=== PATIENT | female | born 1995 | race Caucasian/White ===

== ENCOUNTER 2019-06-01 15:42 | Emergency (ER) | payer OTHER, SELFPAY ==
[2019-06-01 16:05] VITALS: BP 126/78; PULSE 83; RESP 16; TEMP 36.9; O2SAT 98
[2019-06-01 16:20] VITALS: BP 132/64; PULSE 93; RESP 20; TEMP 37.5; O2SAT 95
--- NOTE | 2019-06-01 16:36 | ED.URI ---
HPI - URI/Sore Throat General Chief Complaint: Upper Respiratory Infection Stated Complaint: Poss Sinus infection Time Seen by Provider: 06/01/19 16:36 Source: patient Mode of arrival: ambulatory Limitations: no limitations History of Present Illness HPI Narrative: Patient presents with a two-week history of sinus pressure and congestion. Patient states she is taken multiple [id number] remedies with no relief. Patient denies any fever no shortness of breath no chest pain. Related Data Home Medications Medication Instructions Recorded Confirmed Trileptal 300 mg PO DAILY 04/09/19 06/01/19 clonazepam 0.5 mg PO HS 04/09/19 06/01/19 levothyroxine 88 mcg PO DAILY 04/09/19 06/01/19 risperidone 0.5 mg PO BID 04/09/19 06/01/19 vilazodone [Viibryd] 40 mg PO DAILY 04/09/19 06/01/19 Allergies Allergy/AdvReac Type Severity Reaction Status Date / Time buspirone Allergy Unknown too Verified 06/01/19 16:30 sedating cefixime Allergy Unknown Unknown Verified 06/01/19 16:30 Review of Systems Review of Systems: Narrative: CONSTITUTIONAL: Denies fever, chills, or sweats. EYES: Denies visual changes, redness, or discharge. ENT: Denies rhinorrhea, congestion, sore throat, or otalgia. CARDIOVASCULAR: Denies chest pain, palpitations, or edema. RESPIRATORY: Denies cough or dyspnea. GASTROINTESTINAL: Denies abdominal pain, nausea, vomiting, or diarrhea. GENITOURINARY: Denies dysuria or hematuria. SKIN: Denies rash or itching. MUSCULOSKELETAL: Denies back pain, joint pain, or myalgia. NEUROLOGIC: Denies headache, numbness, or weakness. PSYCHIATRIC: Denies anxiety or depression. [facility] Past Medical History Medical History Anxiety Depression Hypothyroidism Family History Family History Other Cerebrovascular accident Depression Diabetes mellitus Hypertension Social History Social History Smoking status: Never smoker Alcohol intake: current Comments At time of signature, agree with nursing past medical, surgical, social and family history. There is no relevant family history pertinent to the presenting complaint Exam Narrative: Exam Narrative: GENERAL: Well-appearing, well-nourished, and in no acute distress. HEAD: Normocephalic, atraumatic. EYES: PERRLA and EOMI. ENT: Nares clear, no rhinorrhea or epistaxis. Mucous membranes moist. Mild frontal sinus tenderness mild postnasal drainage bilateral TM dullness NECK: Supple. CHEST: Clear to auscultation. No respiratory distress. HEART: Regular rate and rhythm. No murmur heard. Normal peripheral pulses. ABDOMEN: Soft, nontender, nondistended, normal active bowel sounds. EXTREMITIES: Normal range of motion. No edema. SKIN: Warm, dry, no rash. NEURO: No focal deficits. Alert and oriented x3. [place] Coma Scale Eye Opening: Spontaneous 4 [place] Coma Scale Motor: Obeys Commands 6 Dominique Coma Scale Verbal: Oriented 5 [place] Coma Scale Total 15 Course Vital Signs Vital signs: Vital Signs Temperature 36.9 C 06/01/19 16:05 Pulse Rate 83 06/01/19 16:05 Respiratory Rate 16 06/01/19 16:05 Blood Pressure 126/78 06/01/19 16:05 Pulse Oximetry 98 06/01/19 16:05 Temperature 37.5 C 06/01/19 16:20 Pulse Rate 93 06/01/19 16:20 Respiratory Rate 20 06/01/19 16:20 Blood Pressure 132/64 06/01/19 16:20 Pulse Oximetry 95 06/01/19 16:20 Please MICHELLE schedule a followup visit with your personal physician for further evaluation and treatment. Including recheck and discussion of your blood pressure. If your symptoms persist, change or worsen significantly before you can contact your personal physician then please, without delay, go to the emergency department for further evaluation MDM - URI/Sore Throat Differential Diagnosis Differential diagnosis: Likely upper respiratory infection,
== END 2019-06-01 16:56 | disposition home or self-care (01) ==
PROVIDERS: Emergency Provider Nurse Practitioner Family; PCP Family Medicine
DX: J01.00 Acute maxillary sinusitis, unspecified (principal); J06.9 Acute upper respiratory infection, unspecified
CPT/HCPCS: 99213; G0463

== ENCOUNTER 2020-04-08 23:48 | Emergency (ER) | payer OTHER, SELFPAY ==
[2020-04-08 23:54] VITALS: BP 114/73; PULSE 85; RESP 18; TEMP 36.6; O2SAT 100
--- NOTE | 2020-04-08 23:55 | ED.NAVMDI ---
HPI - Nausea/Vomiting/Diarrhea General Chief complaint: Nausea/Vomiting/Diarrhea Stated complaint: vomiting, withdrawals Time Seen by Provider: 04/08/20 23:50 History of Present Illness HPI Narrative: [place] and vomiting since this morning. Associated with mild epigastric pain. She is not able to tolerate anything by mouth. She recently had her antidepressant dose changed and believes that she is in withdrawal. No fever, chills, diarrhea, constipation. Related Data Home Medications Medication Instructions Recorded Confirmed clonazepam 0.5 mg PO HS 04/09/19 03/16/20 risperidone 0.5 mg PO BID 04/09/19 03/16/20 vilazodone [Viibryd] 20 mg PO DAILY 04/09/19 03/16/20 norethindrone acetate 1 mg-ethinyl 1 tablet PO DAILY 01/06/20 03/16/20 estradiol 20 mcg tablet Allergies Allergy/AdvReac Type Severity Reaction Status Date / Time buspirone Allergy Unknown too Verified 04/08/20 23:58 sedating cefixime Allergy Unknown Unknown Verified 04/08/20 23:58 Review of Systems Review of Systems: All systems reviewed & are unremarkable except as noted in HPI and below Constitutional: Constitutional: Denies chills and Denies fever(s) Cardiovascular: Cardiovascular: Denies chest pain Respiratory: Respiratory: Denies dyspnea Gastrointestinal: Gastrointestinal: Reports abdominal pain, Denies constipation, Reports heartburn, Denies diarrhea, Reports nausea and Reports vomiting Genitourinary: Genitourinary: Denies hematuria and Denies dysuria Musculoskeletal: Musculoskeletal: Denies back pain Neurologic: Reports dizziness, Denies syncope and Reports weakness Psychiatric: Psychiatric: Reports anxiety and Reports depression Endocrine: Endocrine: Denies polydipsia [facility] Past Medical History Medical History Anxiety Depression Dysuria Hypothyroidism Viral syndrome Family History Family History Other Cerebrovascular accident Depression Diabetes mellitus Hypertension Social History Social History Smoking status: Current some day smoker (marijuana) Alcohol intake: current Exam Const: General: healthy appearing, no acute distress, alert and ill appearing Orientation/consciousness: patient oriented x3 HENMT: Head: normal to inspection Chest: Chest palpation & inspection: no tenderness Resp: Effort & Inspection: normal respiratory effort Auscultation: clear to auscultation bilaterally, no rales, no rhonchi and no wheezes Cardio: Jugular venous distension: no JVD Rate: regular rate Rhythm: regular rhythm Heart sounds: no murmurs GI: Inspection: non-distended GI Palp: Yes Soft to palpation, Yes Tenderness to palpation present (GI) (epigastric, mild), No Guarding due to palpation present (GI) and No Rebound tenderness present Skin: General skin exam: normal color Neuro: General: patient oriented x3, moves all extremities, no focal motor deficits and CN's II-XI intact bilaterally Speech: normal speech Extrem: General: no edema Psych: Appearance: well kempt Affect: normal affect Course Vital Signs Vital signs: Vital Signs Temperature 36.6 C 04/08/20 23:54 Pulse Rate 85 04/08/20 23:54 Respiratory Rate 18 04/08/20 23:54 Blood Pressure 114/73 04/08/20 23:54 Pulse Oximetry 100 04/08/20 23:54 Temperature 36.6 C 04/08/20 23:54 Pulse Rate 62 04/09/20 03:30 Respiratory Rate 16 04/09/20 03:30 Blood Pressure 123/80 04/09/20 03:20 Pulse Oximetry 100 04/09/20 03:15 MDM - Nausea/Vomiting/Diarrhea MDM Narrative Medical decision making narrative: Doing better after treatment. Now complaining of heart burn. I ordered medications. She asked to be discharged before I had the opportunity to reassess her Differential Diagnosis Differential diagnosis: Likely food poisoning, gastroenteritis, drug-induced
[2020-04-09] VITALS (12 sets, daily range): BP systolic 121–123; BP diastolic 79–80; PULSE 57–96; RESP 8–20; O2SAT 100
[2020-04-09] MEDS: SODIUM CHLORIDE 0.9% IV 1,000 ML 999 ML IV CONT ×2 (00:11→01:15)
[2020-04-09] MEDS: ONDANSETRON INJ 4 MG/2 ML VIAL IV PUSH (00:11)
[2020-04-09 00:35] LABS: Alanine Aminotransferase 12 U/L (4-35); Albumin Level 4.7 g/dL (3.5-5.1); Alkaline Phosphatase 114 U/L (38-126); Anion Gap 12 mmol/L (8-16); Aspartate Amino Transferase 23 U/L (14-36); Blood Urea Nitrogen 13 mg/dL (7-17); Carbon Dioxide 24 mmol/L (22-30); Chloride 103 mmol/L (98-107); Estimated CRCL calculation 66 ml/min; Estimated Glomerular Filt Rate > 60; Glucose 187 mg/dL (65-105); Lipase 44 U/L (23-300); Potassium 4.1 mmol/L (3.4-5.0); Sodium 139 mmol/L (137-145)
[2020-04-09 00:38] LABS: Basophils Absolute Auto 0.1 K/mm3 (0.0-0.1); Basophils Percent Auto 0.6 % (0.2-1.2); Eosinophils Absolute Auto 0.3 K/mm3 (0-0.3); Eosinophils Percent Auto 2.4 % (0-4.4); Hematocrit 45.3 % (37.0-47.0); Hemoglobin 15.8 g/dL (12.0-15.0); Immature Granulocyte Absolute 0.07 K/mm3 (0.00-0.031); Immature Granulocyte Percent A 0.5 % (0-0.5); Lymphocytes Absolute Auto 1.81 K/mm3 (0.9-3.2); Lymphocytes Percent Auto 12.9 % (18.3-44.2); Mean Corpuscular HGB Conc 34.9 g/dl (32-36); Mean Corpuscular Hemoglobin 32.3 pg (26-34); Mean Corpuscular Volume 92.6 fl (80-100); Mean Platelet Volume 9.2 fl (7.4-10.4); Monocytes Absolute Auto 0.6 K/mm3 (0.1-0.6); Monocytes Percent Auto 4.2 % (2.6-8.5); Neutrophils Absolute Auto 11.1 K/mm3 (1.3-6.7); Neutrophils Percent Auto 79.4 % (45.5-73.1); Platelet Count Result 402 k/mm3 (150-375); Red Blood Count 4.89 M/mm3 (4.2-5.4); Red Cell Distribution Width 12.7 % (11.5-14.5)
[2020-04-09] MEDS: HALOPERIDOL LACTATE 5 MG/ML VIAL IV PUSH (01:15)
[2020-04-09 01:31] LABS: Add Urine Microscopic? YES; Appearance Urine Cloudy (Clear); Bilirubin Urine Negative (Negative); Blood Urine 2+ (Negative); Color Urine Yellow (Yellow); Glucose Urine UA Negative (Negative); Ketones Urine 2+ mg/dL (Negative); Leukocyte Esterase Ur Trace LEU/UL (Negative); Mucus Urine Heavy /lpf; Nitrate Urine Negative (Negative); Protein Urine 2+ mg/dL (Negative); Specific Grav Ur 1.029 (1.001-1.035); Squamous Epithelial Cell Urine Many /hpf (Few); Urobilinogen Urine Negative mg/dL (<2.0)
[2020-04-09] MEDS: PANTOPRAZOLE SODIUM IV 40 MG VIAL IV PUSH (02:35)
== END 2020-04-09 03:47 | disposition home or self-care (01) ==
PROVIDERS: Emergency Provider Emergency Medicine; PCP Family Medicine
DX: R11.2 Nausea with vomiting, unspecified (principal); F41.9 Anxiety disorder, unspecified; F32.9 Major depressive disorder, single episode, unspecified; E03.9 Hypothyroidism, unspecified
CPT/HCPCS: 36415; 80053; 81001; 81025; 83690; 85025; 87086; 87088; 96361; 96374; 96375; 99284; A9270; C9113; J1630; J2405; J7030

== ENCOUNTER 2020-10-16 14:50 | Emergency (ER) | payer OTHER, SELFPAY ==
[2020-10-16 14:56] VITALS: BP 111/71; PULSE 89; RESP 14; TEMP 37.4; O2SAT 99
[2020-10-16 15:06] VITALS: BP 111/71; PULSE 89; RESP 14; TEMP 37.4; O2SAT 99
--- NOTE | 2020-10-16 15:37 | ED.GENADULT ---
HPI - General Adult General Chief complaint: Skin/Abscess/Foreign Body Stated complaint: Bump under Chin Time Seen by Provider: 10/16/20 15:37 Source: patient and RN notes reviewed Mode of arrival: ambulatory Limitations: no limitations History of Present Illness HPI narrative: 24-year-old female presents with complaints of lesion to chin with firmness, redness, tenderness, and swelling for the past 7 days. ?Alice reports increasing symptoms after picking at the area on . ?Neosporin without relief. ?Tender to touch. Drainage. ?History of skin problems. ?No fever. ?No abdominal pain, nausea, and vomiting. Tolerating po intake well. ?LMP 10/16/20. ?Remains active. ?The patient reports she has not been diagnosed with COVID-19. The patient reports she is not waiting for the results of a COVID-19 lab test. ?The patient reports she does not have chills, weakness, or fatigue. ?The patient reports she does not have a new or worsening cough or shortness of breath. ?Denies chest pain. The patient reports she does not have any rhinorrhea, congestion, loss of taste or smell, sore throat, and diarrhea. ?Denies recent traveling. ?Denies concerns for COVID-19 or exposures. At this time, the patient is not suspected of having COVID-19. Some parts of this dictation were generated by voice recognition software and may contain typographical and/or grammatical inaccuracies. Related Data Home Medications Medication Instructions Recorded Confirmed oxcarbazepine 150 mg tablet 300 mg PO DAILY 08/17/20 08/17/20 norethindrone-e.estradiol-iron 1 tablet PO DAILY 10/16/20 10/16/20 [Aurovela Fe 1.5/30 (28)] Allergies Allergy/AdvReac Type Severity Reaction Status Date / Time buspirone Allergy Unknown too Verified 09/27/20 11:15 sedating cefixime Allergy Unknown Hives Verified 10/16/20 15:04 Review of Systems Review of Systems: Narrative: CONSTITUTIONAL: Denies fever, chills, sweats. EYES: Denies visual changes, redness, discharge. ENT: Denies rhinorrhea, congestion, sore throat, otalgia. CARDIOVASCULAR: Denies chest pain, palpitations, edema. RESPIRATORY: Denies dyspnea, wheezing, cough. GASTROINTESTINAL: Denies abdominal pain, nausea, vomiting, diarrhea. SKIN: Denies rash or itching. Complaints of lesion to chin with firmness, redness, tenderness, swelling, and drainage. MUSCULOSKELETAL: Denies acute back pain, joint pain, or myalgia. NEUROLOGIC: Denies numbness or focal weakness. PSYCHIATRIC: Denies anxiety or depression. All systems reviewed & are unremarkable except as noted in HPI and below. [facility] Past Medical History Medical History (Updated 10/17/20 @ 00:00 by Noemi Palma) Anxiety Closed left forearm fracture Depression Dysuria Hypothyroidism Marijuana smoker Moderate persistent asthma Viral syndrome Surgical History Surgical History (Updated 10/16/20 @ 15:57 by ELVIA Simeon) History of dental surgery History of tonsillectomy Family History Family History Other Cerebrovascular accident Depression Diabetes mellitus Hypertension Social History Social History (Updated 10/16/20 @ 15:58 by ELVIA Simeon) Smoking status: Never smoker Tobacco type: cigarettes Second hand tobacco smoke exposure: No Alcohol intake: current Substance use: current Substance use type: marijuana Gender identity (if verbalized by the patient): Female Comments At time of signature, I have reviewed and agree with the nursing past medical, surgical, social, and family history. Please see nursing chart for further information. There is no relevant family history pertinent to the presenting complaint. Exam Narrative: Exam Narrative: GENERAL: This is a well-nourished, well-developed patient, in no apparent distress. Talking in full sentences without deficit and ambulate with steady gait without dyspnea. HEAD: Normocephalic, atrauma
== END 2020-10-16 16:08 | disposition home or self-care (01) ==
PROVIDERS: Emergency Provider Nurse Practitioner Family; PCP Family Medicine
DX: L70.0 Acne vulgaris (principal); E03.9 Hypothyroidism, unspecified; J45.909 Unspecified asthma, uncomplicated
CPT/HCPCS: 99213; G0463

== ENCOUNTER → 2020-11-08 12:01 | Outpatient (CLI) | payer OTHER, SELFPAY ==
--- NOTE | ~2020-11-08 | US_ITS ---
EXAMINATION: US abdomen limited EXAM DATE: 11/08/2020 12:19 INDICATION: Nausea, and vomiting every morning. Right-sided back pain, right shoulder pain. TECHNIQUE: Multiple grayscale and Doppler images of the abdomen right upper quadrant were obtained (b y a technologist who performed the scan) and subsequently reviewed. Comparison is made to prior exami nation from 05/26/2012. FINDINGS: The pancreatic head and body are normal in appearance. The pancreatic tail is not visualized. The l iver has normal echogenicity and contour. There are no focal liver lesions identified. There is no evidence of intrahepatic biliary duct dilation. Portal venous flow was seen in the hepatopedal, nor mal direction and has normal Doppler waveform. No right-sided hydronephrosis. Common bile duct measures 3 mm, which is normal. The gallbladder wall is normal in thickness, with ex pected amount of distention. No sonographic evidence of pericholecystic fluid. There is no cholelit hiases. Technologist performing exam reports patient did not demonstrate sonographic Purdy's sign. Please note that this sign is less reliable in patients who have received pain medication. IMPRESSION: 1. Unremarkable abdominal ultrasound exam. Reviewed, dictated and finalized at location B.
== END ==
PROVIDERS: PCP Family Medicine; Visit Provider Family Medicine
DX: R11.0 Nausea (principal)
CPT/HCPCS: 76705

== ENCOUNTER 2020-11-27 14:28 | Emergency (ER) | payer OTHER, SELFPAY ==
[2020-11-27 14:35] VITALS: BP 106/73; PULSE 84; RESP 16; TEMP 37.3; O2SAT 99
--- NOTE | 2020-11-27 14:57 | ED.EAR ---
HPI - Ear Problem General Chief complaint: Ear Stated complaint: Possible Ear infection Time Seen by Provider: 11/27/20 14:50 Source: patient, RN notes reviewed and old records reviewed Mode of arrival: ambulatory Limitations: no limitations History of Present Illness HPI Narrative: 24 year old female who presents to [facility] care with complaints of drainage from her right ear for the past week duration with her ear being itchy.Patient denies any acute pain to her right ear, states that drainage is clear and just irritated feeling and itchy. Patient denies any cough, nasal drainage, sore throat, fevers or any feelings of congestion. Patient has not taken any OTC medication or used any ear drops to he right ear.Patient does have past history of ear infections and tympanoplasty to her right ear. Patient denies any recent swimming. MD Complaint: ear pain (feels irritated and itchy) and ear discharge Location: right ear Duration: other (one week) Severity: mild Relieving factors: nothing Exacerbating factors: nothing Discharge from ear: Reports yes - clear Treatment prior to arrival: none Related Data Home Medications Medication Instructions Recorded Confirmed oxcarbazepine 150 mg tablet 300 mg PO DAILY 08/17/20 11/27/20 Allergies Allergy/AdvReac Type Severity Reaction Status Date / Time buspirone Allergy Unknown too Verified 11/24/20 10:39 sedating cefixime Allergy Unknown Hives Verified 11/24/20 10:39 Review of Systems Review of Systems: Narrative: CONSTITUTIONAL: Denies fever, chills, or sweats. EYES: Denies visual changes, redness, or discharge. ENT: Denies rhinorrhea, congestion, sore throat,drainage of eight ear. CARDIOVASCULAR: Denies chest pain, palpitations, or edema. RESPIRATORY: Denies cough or dyspnea. GASTROINTESTINAL: Denies abdominal pain, nausea, vomiting, or diarrhea. GENITOURINARY: Denies dysuria or hematuria. SKIN: Denies rash or itching. MUSCULOSKELETAL: Denies back pain, joint pain, or myalgia. NEUROLOGIC: Denies headache, numbness, or weakness. PSYCHIATRIC: Denies anxiety or depression. All systems reviewed & are unremarkable except as noted in HPI and below PMFSH Past Medical History Medical History (Updated 11/30/20 @ 17:09 by Stephanie Vega NP) Anxiety Closed left forearm fracture Depression Dysuria Hypothyroidism Marijuana smoker Moderate persistent asthma Nausea and vomiting Viral syndrome Surgical History Surgical History (Updated 11/30/20 @ 17:06 by Stephanie Vega NP) History of dental surgery History of tonsillectomy History of tympanoplasty of right ear Family History Family History (Updated 11/30/20 @ 17:07 by Stephanie Vega NP) Other Cerebrovascular accident Depression Diabetes mellitus Hypertension Kidney stones Social History Social History (Updated 11/30/20 @ 17:07 by Stephanie Vega NP) Smoking status: Former smoker Tobacco type: cigarettes Second hand tobacco smoke exposure: No Alcohol intake: current Substance use: current Substance use type: marijuana Gender identity (if verbalized by the patient): Female Comments At time of signature, agree with nursing past medical, surgical, social and family history. There is no relevant family history pertinent to the presenting complaint Exam Narrative: Exam Narrative: GENERAL: Well-appearing, well-nourished, and in no acute distress. HEAD: Normocephalic, atraumatic. EYES: PERRLA and EOMI. ENT: Nares clear, no rhinorrhea or epistaxis. Mucous membranes moist.Right TM normal with dull TM with canal red and irritated with some clear drainage no acute swelling of canal, Left TM normal with good light reflex, throat pink with no exudates or lesions NECK: Supple.no lymphadenopathy CHEST: Clear to auscultation. No respiratory distress.SAO2 99% on room air HEART: Regular rate and rhythm. No murmur heard. Normal peripheral pulses. ABDOMEN: Soft, nontender, nondistended, normal active
== END 2020-11-27 15:17 | disposition home or self-care (01) ==
PROVIDERS: Emergency Provider Registered Nurse; PCP Family Medicine
DX: H60.501 Unspecified acute noninfective otitis externa, right ear (principal); Z87.891 Personal history of nicotine dependence; F41.9 Anxiety disorder, unspecified; F32.9 Major depressive disorder, single episode, unspecified; E03.9 Hypothyroidism, unspecified; J45.909 Unspecified asthma, uncomplicated
CPT/HCPCS: 99213; G0463

== ENCOUNTER 2021-04-25 12:24 | Emergency (ER) | payer OTHER, SELFPAY ==
[2021-04-25 12:29] VITALS: BP 107/72; PULSE 77; RESP 16; TEMP 36.7; O2SAT 100
--- NOTE | 2021-04-25 12:51 | ED.URI ---
HPI - URI/Sore Throat General Chief Complaint: Upper Respiratory Infection Stated Complaint: sinus infection History of Present Illness HPI Narrative: This is a 27-year-old female comes in complaining that her asthma has been acting. Patient states that she has a inhaler at home as well as a nebulizer although she does not have any medication for her nebulizer. Patient states over the past few days it hurts her to cough she seems somewhat congested and she is not getting better. Patient called her primary care provider was unable to get in. Related Data Home Medications Medication Instructions Recorded Confirmed oxcarbazepine 150 mg tablet 300 mg PO DAILY 08/17/20 04/25/21 Allergies Allergy/AdvReac Type Severity Reaction Status Date / Time buspirone Allergy Unknown too Verified 04/25/21 12:41 sedating cefixime Allergy Unknown Hives Verified 04/25/21 12:41 amoxicillin [From Augmentin] AdvReac Other Verified 04/25/21 12:46 clavulanic acid AdvReac Other Verified 04/25/21 12:46 [From Augmentin] Review of Systems Review of Systems: Shortness of breath, wheezing, coughing All systems reviewed & are unremarkable except as noted in HPI and below PMFSH Past Medical History Medical History Anxiety Closed left forearm fracture Depression Dysuria Hypothyroidism Marijuana smoker Moderate persistent asthma Nausea and vomiting Viral syndrome Surgical History Surgical History History of dental surgery History of tonsillectomy History of tympanoplasty of right ear Family History Family History Other Cerebrovascular accident Depression Diabetes mellitus Hypertension Kidney stones Social History Social History Tobacco type: cigarettes Second hand tobacco smoke exposure: No Alcohol intake: current Substance use: current Substance use type: marijuana Gender identity (if verbalized by the patient): Female Sexual Orientation (if Verbalized by the Patient): Straight or Heterosexual Comments At time as signature, I have reviewed and agree with nursing past medical, social, surgical and family history. Please see nursing chart for further information. There is no relevant family history pertinent to the presenting complaint. Exam Narrative: GENERAL:Well-appearing, and in no acute distress. HEAD:Normocephalic, atraumatic. EYES: PERRLA ENT: Nares clear Mucous membranes moist. CHEST: Clear to auscultation diminished in lower lobes. No respiratory distress. HEART: Regular rate and rhythm. Normal peripheral pulses. EXTREMITIES: Normal range of motion. No edema. SKIN: Warm, dry, no rash. NEURO: No focal deficits. Alert and oriented x3. Course Course Emergency Course: Influenza negative Vital Signs Vital signs: Vital Signs Temperature 98.0 F 04/25/21 12:29 Pulse Rate 77 04/25/21 12:29 Respiratory Rate 16 04/25/21 12:29 Blood Pressure 107/72 04/25/21 12:29 Pulse Oximetry 100 04/25/21 12:29 Temperature 98.0 F 04/25/21 12:29 Pulse Rate 77 04/25/21 12:29 Respiratory Rate 16 04/25/21 12:29 Blood Pressure 107/72 04/25/21 12:29 Pulse Oximetry 100 04/25/21 12:29 MDM - URI/Sore Throat Differential Diagnosis Differential diagnosis: Likely upper respiratory infection, otitis media, sinusitis, viral infection, bronchitis, influenza, pharyngitis and other Lab Data Labs: Influenza A Screen Negative Reference Range: Negative Influenza B Screen Negative Reference Range: Negative Discharge Plan Discharge Clinical Impression: Asthma Qualifiers: Asthma severity: mild Asthma persistence: intermittent A
== END 2021-04-25 13:20 | disposition home or self-care (01) ==
PROVIDERS: Emergency Provider Nurse Practitioner Family; PCP Family Medicine
DX: J45.20 Mild intermittent asthma, uncomplicated (principal); E03.9 Hypothyroidism, unspecified
CPT/HCPCS: 87804; 99213; G0463

== ENCOUNTER 2021-08-10 16:27 | Emergency (ER) | payer OTHER, SELFPAY ==
[2021-08-10 16:37] VITALS: BP 124/76; PULSE 87; RESP 18; TEMP 37.4; O2SAT 100
--- NOTE | 2021-08-10 17:06 | ED.URI ---
HPI - URI/Sore Throat General Chief Complaint: Upper Respiratory Infection Stated Complaint: sinus infection Time Seen by Provider: 08/10/21 17:00 Source: patient Mode of arrival: ambulatory Limitations: no limitations History of Present Illness HPI Narrative: Ms. Bush is a 25-year-old female patient presenting to the clinic today with complaints of sinus congestion, sinus pain, runny nose x3 days. She denies any known exposure to influenza, strep, or Covid. She reports she would like to have flu testing completed because she is concerned about her boss who is at work. She denies any fever or chills. MD elicited complaint: rhinorrhea, nasal congestion and sinus pain Related Data Home Medications Medication Instructions Recorded Confirmed levothyroxine 88 mcg PO DAILY 08/10/21 08/10/21 Allergies Allergy/AdvReac Type Severity Reaction Status Date / Time buspirone Allergy Unknown too Verified 08/10/21 16:55 sedating cefixime Allergy Unknown Hives Verified 08/10/21 16:55 amoxicillin [From Augmentin] AdvReac Other Verified 08/10/21 16:55 clavulanic acid AdvReac Other Verified 08/10/21 16:55 [From Augmentin] Review of Systems Review of Systems: Pertinent positives per HPI. Patient denies any fever, chills, rash, headache, visual changes, dizziness, cough, shortness of breath, chest pain, palpitations, nausea, vomiting, diarrhea, constipation, abdominal pain, or any urinary issues. [facility] Past Medical History Medical History Anxiety Closed left forearm fracture Depression Dysuria Hypothyroidism Marijuana smoker Moderate persistent asthma Nausea and vomiting Viral syndrome Surgical History Surgical History History of dental surgery History of tonsillectomy History of tympanoplasty of right ear Family History Family History Other Cerebrovascular accident Depression Diabetes mellitus Hypertension Kidney stones Social History Social History Tobacco type: cigarettes Second hand tobacco smoke exposure: No Alcohol intake: current Substance use: current Substance use type: marijuana Gender identity (if verbalized by the patient): Female Sexual Orientation (if Verbalized by the Patient): Straight or Heterosexual Comments At the time of my signature, I reviewed and agree with the nursing past medical, surgical, social, and family history. There is no relevant family history pertinent to the patient complaint. Exam Narrative: General: Well-developed, well nourished, in no apparent distress Head: Normocephalic, atraumatic Eyes: Pupils equally round and reactive to light bilaterally, EOM intact, sclera and conjunctive clear, no discharge, lids normal Ears: TMs intact and clear, ear canals clear, no drainage, grossly hearing normal. Nose: Nares patent, clear discharge, mild inflammation, mild sinus tenderness to the frontal sinus. Mouth: Oral pharynx without lesions or masses, good dentition, MMM. Neck: Supple, trachea midline, no enlargement of anterior or posterior cervical nodes, no thyroid masses or goiter palpable. Cardio: Regular rate and rhythm, s1 and s2 normal, no murmur appreciated. Resp: Clear to auscultation bilaterally, no rhonchi, rales, wheezing or rubs Course Course Emergency Course: Portions of this record may have been created with voice recognition software. Level of Care: Express Care Visit Vital Signs Vital signs: Vital Signs Temperature 37.4 C 08/10/21 16:37 Pulse Rate 87 08/10/21 16:37 Respiratory Rate 18 08/10/21 16:37 Blood Pressure 124/76 08/10/21 16:37 Pulse Oximetry 100 08/10/21 16:37 Temperature 37.4 C 08/10/21 16:37 Pulse Rate 87 08/10/21 16:37 Respiratory Rate
== END 2021-08-10 17:15 | disposition home or self-care (01) ==
PROVIDERS: Emergency Provider Nurse Practitioner Family; PCP Family Medicine
DX: J06.9 Acute upper respiratory infection, unspecified (principal); E03.9 Hypothyroidism, unspecified; J45.909 Unspecified asthma, uncomplicated; Z72.0 Tobacco use; F12.90 Cannabis use, unspecified, uncomplicated
CPT/HCPCS: 87804; 99213; G0463

== ENCOUNTER 2021-10-31 12:12 | Outpatient (CLI) | payer OTHER, SELFPAY ==
[2021-11-06 20:04] LABS: Tissue Transglutaminase IgG Ab <1.0 U/mL (<15.0)
[2021-11-07 14:43] LABS: Tissue Transglutaminase IgA Ab <1.0 U/mL (<15.0)
== END 2021-10-31 12:13 | disposition home or self-care (01) ==
LOC: ANHLAB 12:13
PROVIDERS: PCP Family Medicine; Visit Provider Nurse Practitioner
DX: K21.9 Gastro-esophageal reflux disease without esophagitis (principal); K58.1 Irritable bowel syndrome with constipation; R11.0 Nausea; R14.0 Abdominal distension (gaseous)
CPT/HCPCS: 36415; 83516

== ENCOUNTER 2021-12-30 14:39 | Emergency (ER) | payer OTHER, SELFPAY ==
[2021-12-30 14:44] VITALS: BP 117/59; PULSE 91; RESP 16; TEMP 36.3; O2SAT 99
--- NOTE | 2021-12-30 14:56 | ED.GENADULT ---
HPI - General Adult General Chief complaint: Skin/Abscess/Foreign Body Stated complaint: Skin Sore/Foot Time Seen by Provider: 12/30/21 14:57 Source: patient Mode of arrival: ambulatory Limitations: no limitations History of Present Illness HPI narrative: 26-year-old female patient presents to the [facility] with complaints of a rash to the foot/between the toes for the last 4 days. Patient states that there was some blisters in between the toes that she recently popped due to it being itchy. Patient states she has been putting Neosporin between the toes. Denies any fevers, body aches or chills. Denies any discharge coming from the area. Related Data Home Medications Medication Instructions Recorded Confirmed L norgest/E estradiol-E estrad 1 tablet PO DAILY 12/30/21 12/30/21 0.15 mg-30 mcg (84)/10 mcg(7) tabs,3mos (Seasonique) clonazepam 0.5 mg tablet 0.5 mg PO HS 12/30/21 12/30/21 Allergies Allergy/AdvReac Type Severity Reaction Status Date / Time cefixime Allergy Unknown Hives Verified 12/30/21 14:54 amoxicillin [From Augmentin] AdvReac Other Verified 12/30/21 14:54 clavulanic acid AdvReac Dyspnea / Verified 12/30/21 14:54 [From Augmentin] SOB Review of Systems Review of Systems: CONSTITUTIONAL: Denies fever, chills, or sweats. EYES: Denies visual changes, redness, or discharge. ENT: Denies rhinorrhea, congestion, sore throat, or otalgia. CARDIOVASCULAR: Denies chest pain, palpitations, or edema. RESPIRATORY: Denies cough or dyspnea. GASTROINTESTINAL: Denies abdominal pain, nausea, vomiting, or diarrhea. GENITOURINARY: Denies dysuria or hematuria. SKIN: Positive itching and rash noted to left foot between the toes MUSCULOSKELETAL: Denies back pain, joint pain, or myalgia. NEUROLOGIC: Denies headache, numbness, or weakness. PSYCHIATRIC: Denies anxiety or depression. [facility] Past Medical History Medical History Anxiety Closed left forearm fracture Depression Dysuria GERD (gastroesophageal reflux disease) Hypothyroidism Marijuana smoker Moderate persistent asthma Nausea Nausea and vomiting Viral syndrome Surgical History Surgical History History of dental surgery History of tonsillectomy History of tympanoplasty of right ear Family History Family History Other Cerebrovascular accident Depression Diabetes mellitus Hypertension Kidney stones Social History Social History Smoking status: Current every day smoker Tobacco type: cigarettes Second hand tobacco smoke exposure: No Alcohol intake: current Substance use: current Substance use type: marijuana Gender identity (if verbalized by the patient): Female Sexual Orientation (if Verbalized by the Patient): Straight or Heterosexual Comments At the time of my signature I agree with nursing past medical history, surgical, social, and family history. There is no relevant family history pertinent to the presenting complaint. Exam Narrative: GENERAL: Well-appearing, well-nourished, and in no acute distress. HEAD: Normocephalic, atraumatic. EYES: PERRLA and EOMI. ENT: Nares clear, no rhinorrhea or epistaxis. Mucous membranes moist. NECK: Supple. No lymphadenopathy CHEST: Clear to auscultation. No respiratory distress. HEART: Regular rate and rhythm. No murmur heard. Normal peripheral pulses. ABDOMEN: Soft, nontender, nondistended, normal active bowel sounds. EXTREMITIES: Normal range of motion. No edema. SKIN: Warm, dry, patient has what appears to be a white moistened rash in between the second and third toe and another similar looking rash in between the fourth and fifth toe. There is no evidence of infection no open wounds or discharge present. The rash appears white and moist. NEURO: No focal deficits
== END 2021-12-30 15:10 | disposition home or self-care (01) ==
PROVIDERS: Emergency Provider Nurse Practitioner Family; PCP Family Medicine
DX: B35.3 Tinea pedis (principal); F17.210 Nicotine dependence, cigarettes, uncomplicated; K21.9 Gastro-esophageal reflux disease without esophagitis; E03.9 Hypothyroidism, unspecified; F41.9 Anxiety disorder, unspecified; J45.909 Unspecified asthma, uncomplicated
CPT/HCPCS: 99213; G0463

== ENCOUNTER 2022-01-25 04:06 | Emergency (ER) | payer OTHER, SELFPAY ==
--- NOTE | ~2022-01-25 | XR_ITS ---
EXAMINATION: XR chest 1V portable DATE: 01/25/2022 04:59 INDICATION: Cough. TECHNIQUE: A single frontal view of the chest was obtained. COMPARISON: Chest 2 views 11/18/2015, CT abdomen and pelvis 05/28/2014 FINDINGS: The chest demonstrates clear lungs without pneumonia, pleural effusion, or pneumothorax. Th e heart size is normal. IMPRESSION: 1. No acute cardiopulmonary disease. Reviewed, dictated and finalized at location A.
[2022-01-25 04:10] VITALS: BP 129/77; PULSE 84; RESP 20; TEMP 36; O2SAT 100
[2022-01-25] MEDS: FAMOTIDINE 20 MG TABLET PO (04:23)
[2022-01-25] MEDS: KETOROLAC 30 MG/ML VIAL (*BKC) IM (04:23)
--- NOTE | 2022-01-25 05:36 | ED.GENADULT ---
HPI - General Adult General Chief complaint: Unspecified Stated complaint: Inhaled acid reflux sore throat Time Seen by Provider: 01/25/22 04:18 History of Present Illness HPI narrative: Patient states that she felt something coming up in her throat, choked and started coughing while she was sleeping/waking up. She is endorsing a cough and sore throat. However after some questioning she now states that she actually has been having a cough and sore throat for 3 days now, and in fact took a home COVID test yesterday that was negative. Related Data Home Medications Medication Instructions Recorded Confirmed L norgest/E estradiol-E estrad 1 tablet PO DAILY 12/30/21 01/23/22 0.15 mg-30 mcg (84)/10 mcg(7) tabs,3mos (Seasonique) clonazepam 0.5 mg tablet 0.5 mg PO HS 12/30/21 01/23/22 Allergies Allergy/AdvReac Type Severity Reaction Status Date / Time cefixime Allergy Unknown Hives Verified 01/25/22 04:07 amoxicillin [From Augmentin] AdvReac Other Verified 01/25/22 04:07 clavulanic acid AdvReac Dyspnea / Verified 01/25/22 04:07 [From Augmentin] SOB Review of Systems Review of Systems: CONST: No fever. HEENT: sore throat C/V: Cough RESP: Cough and shortness of breath GI: Very minimal nausea : No dysuria. M/S: No joint pain. SKIN: No rash. NEURO: [No headache or focal numbness or weakness] PSYCH: [No depression] [facility] Past Medical History Medical History Anxiety Closed left forearm fracture Depression Dysuria GERD (gastroesophageal reflux disease) Hypothyroidism Marijuana smoker Moderate persistent asthma Nausea Nausea and vomiting Viral syndrome Surgical History Surgical History History of dental surgery History of tonsillectomy History of tympanoplasty of right ear Family History Family History Other Cerebrovascular accident Depression Diabetes mellitus Hypertension Kidney stones Social History Social History Smoking status: Never smoker Tobacco type: cigarettes Second hand tobacco smoke exposure: No Alcohol intake: current Substance use: never Substance use type: does not use Gender identity (if verbalized by the patient): Female Sexual Orientation (if Verbalized by the Patient): Straight or Heterosexual Exam Narrative: EXAMINATION OF ORGAN SYSTEMS/BODY AREAS: Constitutional: Vital signs per nursing GENERAL:[No acute distress, non-toxic appearing.] HEAD: Normal with no signs of head trauma. EYES: EOMI, conjunctiva normal ENT: Minimal pharyngeal erythema LUNGS: Nonlabored breathing. CTAB HEART: [Regular rate and rhythm] ABD: [Soft], [nontender to palpation] EXT: Normal range of motion SKIN: [No rashes or lesions.] NEURO: [Alert and oriented x 3. No gross focal sensory or strength deficits.] PSYCH: Normal affect Course Vital Signs Vital signs: Vital Signs Temperature 96.8 F L 01/25/22 04:10 Pulse Rate 84 01/25/22 04:10 Respiratory Rate 20 01/25/22 04:10 Blood Pressure 129/77 01/25/22 04:10 Pulse Oximetry 100 01/25/22 04:10 Oxygen Delivery Room Air 01/25/22 04:10 Temperature 96.8 F L 01/25/22 04:10 Pulse Rate 84 01/25/22 04:10 Respiratory Rate 20 01/25/22 04:10 Blood Pressure 129/77 01/25/22 04:10 Pulse Oximetry 100 01/25/22 04:10 Oxygen Delivery Room Air 01/25/22 04:10 Medical Decision Making MDM Narrative Medical decision making narrative: ED COURSE AND MEDICAL DECISION MAKING: This 26-year-old female patient presents with sore throat and cough for 2 to 3 days, which she is attributing to a choking episode several hours earlier but would not explain why she had symptoms for days beforehand. Symptoms most suggestive of viral upper respiratory tract infection. Lungs are clear bilaterally without an
[2022-01-25 05:43] VITALS: BP 117/80; PULSE 73; RESP 16; O2SAT 100
== END 2022-01-25 05:43 | disposition home or self-care (01) ==
PROVIDERS: Emergency Provider Emergency Medicine; PCP Family Medicine
DX: J06.9 Acute upper respiratory infection, unspecified (principal); J45.40 Moderate persistent asthma, uncomplicated; K21.9 Gastro-esophageal reflux disease without esophagitis; E03.9 Hypothyroidism, unspecified; F41.9 Anxiety disorder, unspecified; F32.A Depression, unspecified
CPT/HCPCS: 71045; 96372; 99283; A9270; J1885

== ENCOUNTER 2022-06-27 00:43 | Emergency (ER) | payer BC, SELFPAY ==
--- NOTE | ~2022-06-27 | XR_ITS ---
Clinical Indication: Shortness of breath PA and lateral views of the chest: Comparison: 01/25/2022 Findings: The lungs are clear, without evidence of focal consolidation or pleural effusion. Cardiome diastinal silhouette is within normal limits. Bones and soft tissues are unremarkable. Impression: Normal chest. Reviewed, dictated and finalized at [facility]. [employer] Impression: Normal chest.
[2022-06-27 00:58] VITALS: BP 124/76; PULSE 86; RESP 16; TEMP 37.1; O2SAT 100
--- NOTE | 2022-06-27 01:43 | ED.GENADULT ---
HPI - General Adult General Chief complaint: Unspecified Stated complaint: throat pain Time Seen by Provider: 06/27/22 01:30 History of Present Illness HPI narrative: 26-year-old female with a history of asthma here for evaluation of GI upset. Patient states that she had a coughing fit earlier today and after her coughing fit she felt nauseated and like she was going to vomit. Since then she has had some irritation in her throat that she likens to acid reflux. She took a Pepcid without relief of her symptoms. No fevers, chills, lower abdominal pain, chest pain or shortness of breath. She did not attempt her albuterol inhaler prior to arrival. Related Data Home Medications Medication Instructions Recorded Confirmed L norgest/E estradiol-E estrad 1 tablet PO DAILY 12/30/21 01/23/22 0.15 mg-30 mcg (84)/10 mcg(7) tabs,3mos (Seasonique) clonazepam 0.5 mg tablet 0.5 mg PO HS 12/30/21 01/23/22 Allergies Allergy/AdvReac Type Severity Reaction Status Date / Time cefixime Allergy Unknown Hives Verified 06/27/22 01:01 amoxicillin [From Augmentin] AdvReac Other Verified 06/27/22 01:01 clavulanic acid AdvReac Dyspnea / Verified 06/27/22 01:01 [From Augmentin] SOB Review of Systems Review of Systems: Gen.: Denies fevers or chills Eyes: Denies eye pain or visual change ENT: Reports sore throat Respiratory: Denies shortness of breath or cough CV: Denies chest pain or palpitations GI: Denies abdominal pain nausea, emesis or diarrhea denies burning, urgency, frequency or hematuria Musculoskeletal: Denies back pain or muscle pain Neuro: Denies numbness, tingling, weakness or focal weakness Skin: Denies rash Except as documented, all other systems reviewed and negative [facility] Past Medical History Medical History Anxiety Closed left forearm fracture Depression Dysuria GERD (gastroesophageal reflux disease) Hypothyroidism Marijuana smoker Moderate persistent asthma Nausea Nausea and vomiting Viral syndrome Surgical History Surgical History History of dental surgery History of tonsillectomy History of tympanoplasty of right ear Family History Family History Other Cerebrovascular accident Depression Diabetes mellitus Hypertension Kidney stones Social History Social History Smoking status: Never smoker Tobacco type: cigarettes Second hand tobacco smoke exposure: No Alcohol intake: current Substance use: never Substance use type: does not use Living arrangements: with family Occupation/Education: occupation Gender identity (if verbalized by the patient): Female Sexual Orientation (if Verbalized by the Patient): Straight or Heterosexual Exam Narrative: APPEARANCE: Well appearing, no pain in distress, well-nourished. Head: Normocephalic and atraumatic. EYES: PERRLA/EOMI, conjunctivae clear NOSE: No nasal drainage EARS: External ear normal in appearance THROAT: No tonsillar exudates noted. Uvula is midline. Oropharynx is clear. Mucous membranes are moist. NECK: Supple. No adenopathy, no masses. RESPIRATORY: Expiratory wheezing in the left lower lobe. No respiratory distress. CARDIOVASCULAR: Regular rate and rhythm without murmurs, rubs, or gallops. ABDOMINAL: Normoactive bowel sounds. Soft, nontender, nondistended. No rebound tenderness or guarding. MUSCULOSKELETAL: Extremities are warm and well-perfused. Moves all extremities well. No edema. NEURO: Normal speech. No focal neurologic deficits. SKIN: Skin is warm and dry. No rashes. PSYCHIATRIC: Normal affect/mood.. Course Vital Signs Vital signs: Vital Signs Temperature 98.8 F 06/27/22 00:58 Pulse Rate 86 06/27/22 00:58 Respiratory Rate 16 06/27/22 00:58 Blood Pressure 124/76
[2022-06-27] MEDS: ALBUTEROL SULFATE NEB 2.5 MG/3 ML INH INHALATION (02:05)
[2022-06-27 02:06] VITALS: PULSE 77; RESP 18
[2022-06-27] MEDS: BELLADONNA ALK/PHENOB ELIX 10 ML, MAG HYDROX/ALUMINUM HYD/SIMETH 30 ML, LIDOCAINE HCL 2... PO (02:12)
== END 2022-06-27 02:39 | disposition home or self-care (01) ==
PROVIDERS: Emergency Provider Physician Assistant; PCP Family Medicine
DX: J45.40 Moderate persistent asthma, uncomplicated (principal); K21.9 Gastro-esophageal reflux disease without esophagitis; E03.9 Hypothyroidism, unspecified; F32.A Depression, unspecified; F41.9 Anxiety disorder, unspecified
CPT/HCPCS: 71046; 94640; 99283; A9270

== ENCOUNTER 2022-09-03 11:34 | Outpatient (CLI) | payer BC, SELFPAY ==
[2022-09-03 20:20] LABS: Basophils Percent Auto 0.6 % (0.2-1.2); Eosinophils Absolute Auto 0.5 K/mm3 (0-0.3); Eosinophils Percent Auto 7.2 % (0-4.4); Hematocrit 38.6 % (37.0-47.0); Hemoglobin 12.5 g/dL (12.0-15.0); Immature Granulocyte Absolute 0.01 K/mm3 (0.00-0.031); Immature Granulocyte Percent A 0.2 % (0-0.5); Lymphocytes Absolute Auto 2.26 K/mm3 (0.9-3.2); Lymphocytes Percent Auto 35.6 % (18.3-44.2); Mean Corpuscular HGB Conc 32.4 g/dl (32-36); Mean Corpuscular Hemoglobin 30.8 pg (26-34); Mean Corpuscular Volume 95.1 fl (80-100); Mean Platelet Volume 9.3 fl (7.4-10.4); Monocytes Absolute Auto 0.4 K/mm3 (0.1-0.6); Monocytes Percent Auto 5.8 % (2.6-8.5); Neutrophils Absolute Auto 3.2 K/mm3 (1.3-6.7); Neutrophils Percent Auto 50.6 % (45.5-73.1); Platelet Count Result 343 k/mm3 (150-375); Red Blood Count 4.06 M/mm3 (4.2-5.4); Red Cell Distribution Width 13.2 % (11.5-14.5); White Blood Count 6.4 K/mm3 (4.5-10.0)
[2022-09-03 20:29] LABS: Ferritin 8.15 ng/mL (6.24-137)
[2022-09-03 23:09] LABS: Vitamin D 25 Hydroxy 41.2 ng/mL
== END 2022-09-03 11:35 | disposition home or self-care (01) ==
LOC: ANHGOSHLAB 11:35
PROVIDERS: PCP Family Medicine; Visit Provider Family Medicine
DX: K21.9 Gastro-esophageal reflux disease without esophagitis (principal); R55 Syncope and collapse
CPT/HCPCS: 36415; 82306; 82607; 82728; 85025

== ENCOUNTER 2022-11-11 00:28 | Day surgery (SDC) | payer BC, SELFPAY ==
[2022-10-30 15:17] VITALS: BMI 29.0
[2022-11-11 10:00] VITALS: BP 120/89; PULSE 85; RESP 17; TEMP 36.5; O2SAT 100; BMI 28.0
--- NOTE | 2022-11-11 10:23 | PM.HPGS ---
History of Present Illness History of Present Illness Consent: Risks, benefits, and alternatives have been discussed and questions answered. Patient agrees to proceed with procedure. Chief complaint: GERD Narrative: Alice Bush is a 26 year old female Who had been seen in our office andwas doing better on pantoprazole 40 mg BID. She has since stopped that as was causing bloating. She is now taking OTC prilosec BID and mylanta once per day. she has had a couple of episodes of nocturnal GERD with aspiration per patient for which she goes to the ER and given breathing tx and GI cocktail. complaints of globus sensation at suprasternal notch or that liquid is sitting there. she is afraid of choking and will eat soft foods or be constantly chugging water. removing intermittent vomiting in the evening time. No dysphagia or odynophagia. she states that often she will have reflux, generally at night, where and stomach acid is up in her esophagus and she will finally need to get out of bed and throw it up. No food comes up with that. She has not found relief of this with any of the medications that she has tried. Review of Systems Review of Systems: All systems reviewed & are unremarkable except as noted in HPI and below PMFSH Past Medical History Medical History Anxiety Closed left forearm fracture Depression Dysuria GERD (gastroesophageal reflux disease) Globus syndrome Hypothyroidism Marijuana smoker Moderate persistent asthma Nausea Nausea and vomiting Viral syndrome Surgical History Surgical History History of dental surgery History of tonsillectomy History of tympanoplasty of right ear Family History Family History Other Cerebrovascular accident Depression Diabetes mellitus Hypertension Kidney stones Social History Social History Smoking status: Never smoker Tobacco type: cigarettes Second hand tobacco smoke exposure: No Alcohol intake: current Drinks per week: 3 Substance use: never Substance use type: does not use Lack of Transportation: No Lack of Food: Never True Current Housing: I Have Housing Concerned About Future Housing: No Difficulty Paying Gas/Electric Bills: No Difficulty Paying for Meds: No Currently Unemployed: No Education: High School Diploma/GED Difficulty w/ Childcare or Family Care: No Living arrangements: with family Occupation/Education: occupation Gender identity (if verbalized by the patient): Female Sexual Orientation (if Verbalized by the Patient): Straight or Heterosexual Spiritual care concerns: No Meds Home Medications and Allergies Home Medications Medication Instructions Recorded Confirmed Type linaclotide 72 mcg capsule 72 mcg PO DAILY #30 caps 11/26/21 11/11/22 Rx (Linzess) L norgest/E estradiol-E estrad 1 tablet PO DAILY 12/30/21 11/11/22 History 0.15 mg-30 mcg (84)/10 mcg(7) tabs,3mos (Seasonique) clonazepam 0.5 mg tablet 0.5 mg PO HS 12/30/21 11/11/22 History albuterol sulfate 2.5 mg/3 mL 2.5 mg (3 mL) inhalation Q6H #75 mL 03/22/22 11/11/22 Rx (0.083 %) solution for nebulization levothyroxine 100 mcg tablet 100 mcg PO DAILY #90 tabs 06/25/22 11/11/22 Rx norethindrone 1 mg-ethinyl 1 tablet PO DAILY 09/03/22 11/11/22 History estradiol 20 mcg (21)-iron 75 mg (7) tablet (Loestrin Fe 05/24 (28-Day)) trazodone 50 mg tablet 50 mg PO DAILY 09/03/22 11/11/22 History Claritin 10 mg PO DAILY 10/30/22 11/11/22 History Prilosec OTC 1 tablet PO DAILY 10/30/22 11/11/22 History Allergies Allergy/AdvReac Type Severity Reaction Status Date / Time cefixime Allergy Unknown Hives Verified 11/11/22 09:56 amoxicillin [From Augmentin] AdvReac Other Verified 11/11/22 09:56 clavulanic acid AdvReac Dy
[2022-11-11] MEDS: LACTATED RINGERS 1,000 ML 150 ML IV CONT (10:34)
--- NOTE | 2022-11-11 10:48 | WPDANESEPPF ---
Anes - Initial Pre Proc Eval Procedure: Operation Date: 11/11/22 11:15 Proposed Procedures p Esophagogastroduodenoscopy - Marquis Odonnell MD Date/Time: 11/11/22 10:48 Surgeon: Marquis Odonnell MD Pre Op Diagnosis: GERD Patient Data Age: 26 Gender: F Height: 1.57 m Weight: 69.5 kg Last Vital Signs Temp 97.7 F 11/11/22 10:00 Pulse 85 11/11/22 10:00 Resp 17 11/11/22 10:00 BP 120/89 11/11/22 10:00 Pulse Ox 100 11/11/22 10:00 O2 Del Method Room Air 11/11/22 10:00 Allergies Allergy/AdvReac Type Severity Reaction Status Date / Time cefixime Allergy Unknown Hives Verified 11/11/22 09:56 amoxicillin [From Augmentin] AdvReac Other Verified 11/11/22 09:56 clavulanic acid AdvReac Dyspnea / Verified 11/11/22 09:56 [From Augmentin] SOB Home Medications Medication Instructions Recorded Confirmed Type linaclotide 72 mcg capsule 72 mcg PO DAILY #30 caps 11/26/21 11/11/22 Rx (Linzess) L norgest/E estradiol-E estrad 1 tablet PO DAILY 12/30/21 11/11/22 History 0.15 mg-30 mcg (84)/10 mcg(7) tabs,3mos (Seasonique) clonazepam 0.5 mg tablet 0.5 mg PO HS 12/30/21 11/11/22 History albuterol sulfate 2.5 mg/3 mL 2.5 mg (3 mL) inhalation Q6H #75 mL 03/22/22 11/11/22 Rx (0.083 %) solution for nebulization levothyroxine 100 mcg tablet 100 mcg PO DAILY #90 tabs 06/25/22 11/11/22 Rx norethindrone 1 mg-ethinyl 1 tablet PO DAILY 09/03/22 11/11/22 History estradiol 20 mcg (21)-iron 75 mg (7) tablet (Loestrin Fe 05/24 (28-Day)) trazodone 50 mg tablet 50 mg PO DAILY 09/03/22 11/11/22 History Claritin 10 mg PO DAILY 10/30/22 11/11/22 History Prilosec OTC 1 tablet PO DAILY 10/30/22 11/11/22 History Patient hx anesthesia problems: none Family hx anesthesia problems: none Results Review: All pre-operative results and documents have been reviewed as part of the pre-operative evaluation. [facility] Past Medical History Medical History (Updated 09/16/22 @ 11:45 by Carisa Hurley APRN) Anxiety Closed left forearm fracture Depression Dysuria GERD (gastroesophageal reflux disease) Globus syndrome Hypothyroidism Marijuana smoker Moderate persistent asthma Nausea Nausea and vomiting Viral syndrome Surgical History Surgical History History of dental surgery History of tonsillectomy History of tympanoplasty of right ear Family History Family History Other Cerebrovascular accident Depression Diabetes mellitus Hypertension Kidney stones Social History Social History Smoking status: Never smoker Tobacco type: cigarettes Second hand tobacco smoke exposure: No Alcohol intake: current Drinks per week: 3 Substance use: never Substance use type: does not use Lack of Transportation: No Lack of Food: Never True Current Housing: I Have Housing Concerned About Future Housing: No Difficulty Paying Gas/Electric Bills: No Difficulty Paying for Meds: No Currently Unemployed: No Education: High School Diploma/GED Difficulty w/ Childcare or Family Care: No Living arrangements: with family Occupation/Education: occupation Gender identity (if verbalized by the patient): Female Sexual Orientation (if Verbalized by the Patient): Straight or Heterosexual Spiritual care concerns: No Anes - Eval Final PreProcedure Day of Procedure 11/11/22 10:48 Patient weight: normal Heart: regular rate and rhythm Lungs: clear to auscultation Airway: Mallampati scale class II Neurological: alert and oriented Last oral intake: >/= 8 hours ASA classification: II Emergent: no Anesthetic plan: proceed Anesthesia type and monitoring: general GIVS and standard monitoring Results Review: All pre-operative results and documents have been reviewed as part of the pre-operative evaluation. Infor
[2022-11-11 11:19] VITALS: BP 107/73; PULSE 86; RESP 20; O2SAT 100
[2022-11-11 11:29] VITALS: BP 127/79; PULSE 84; RESP 20; O2SAT 100
[2022-11-11 11:39] VITALS: BP 117/78; PULSE 70; RESP 20; O2SAT 100
== END 2022-11-11 11:50 | disposition home or self-care (01) ==
PROVIDERS: PCP Family Medicine; Visit Provider Internal Medicine Gastroenterology
PROC: 0DJ08ZZ Inspection of Upper Intestinal Tract, Via Natural or Artificial Opening Endoscopic (ICD-10-PCS; CPT 43235; principal; 2022-11-11 11:15)
DX: K21.9 Gastro-esophageal reflux disease without esophagitis (principal); K44.9 Diaphragmatic hernia without obstruction or gangrene; Z79.51 Long term (current) use of inhaled steroids; J45.40 Moderate persistent asthma, uncomplicated; E03.9 Hypothyroidism, unspecified; F41.9 Anxiety disorder, unspecified; F32.A Depression, unspecified
CPT/HCPCS: 43239; 87081; 88305; J2704; J7120

== ENCOUNTER 2023-02-11 10:59 | Outpatient (CLI) | payer BC, SELFPAY ==
[2023-02-11 18:40] LABS: Alanine Aminotransferase 22 U/L (6-35); Alkaline Phosphatase 63 U/L (38-126); Anion Gap 5 mmol/L (8-16); Aspartate Amino Transferase 30 U/L (14-36); Bilirubin,Total 0.7 mg/dL (0.2-1.3); Blood Urea Nitrogen 11 mg/dL (7-17); Calcium 9.2 mg/dL (8.4-10.2); Carbon Dioxide 30 mmol/L (22-30); Chloride 103 mmol/L (98-107); Cholesterol 210 mg/dL (0-200); Estimated Glomerular Filt Rate > 60; Glucose 89 mg/dL (65-110); HDL Direct 45 mg/dL; Potassium 4.3 mmol/L (3.4-5.0); Sodium 138 mmol/L (137-145); Triglycerides 108 mg/dL (<150)
[2023-02-11 18:51] LABS: LDL Cholesterol Direct 141 mg/dL
[2023-02-11 19:19] LABS: Vitamin D 25 Hydroxy 44.5 ng/mL
[2023-02-11 19:34] LABS: Free T4 Free Thyroxine 1.68 ng/mL (0.78-2.19)
[2023-02-11 19:49] LABS: Basophils Percent Auto 0.5 % (0.2-1.2); Eosinophils Absolute Auto 0.3 K/mm3 (0-0.3); Eosinophils Percent Auto 3.9 % (0-4.4); Hematocrit 41.9 % (37.0-47.0); Hemoglobin 13.6 g/dL (12.0-15.0); Immature Granulocyte Absolute 0.02 K/mm3 (0.00-0.031); Immature Granulocyte Percent A 0.2 % (0-0.5); Lymphocytes Percent Auto 30.9 % (18.3-44.2); Mean Corpuscular HGB Conc 32.5 g/dl (32-36); Mean Corpuscular Hemoglobin 31.3 pg (26-34); Mean Corpuscular Volume 96.3 fl (80-100); Mean Platelet Volume 9.8 fl (7.4-10.4); Monocytes Absolute Auto 0.7 K/mm3 (0.1-0.6); Monocytes Percent Auto 7.7 % (2.6-8.5); Neutrophils Percent Auto 56.8 % (45.5-73.1); Platelet Count Result 262 k/mm3 (150-375); Red Blood Count 4.35 M/mm3 (4.2-5.4); Red Cell Distribution Width 12.9 % (11.5-14.5); White Blood Count 8.8 K/mm3 (4.5-10.0)
[2023-02-11 20:07] LABS: Hemoglobin A1C 4.9 % (<5.7)
== END 2023-02-11 11:00 | disposition home or self-care (01) ==
LOC: ANHGOSHLAB 11:01
PROVIDERS: PCP Family Medicine; Visit Provider Family Medicine
DX: E03.8 Other specified hypothyroidism (principal); K21.00 Gastro-esophageal reflux disease with esophagitis, without bleeding; Z79.899 Other long term (current) drug therapy
CPT/HCPCS: 36415; 80053; 80061; 82306; 82607; 82728; 83036; 84439; 84443; 85025

== ENCOUNTER 2023-04-16 13:36 | Emergency (ER) | payer BC, SELFPAY ==
[2023-04-16 13:41] VITALS: BP 124/78; PULSE 74; RESP 16; TEMP 36.9; O2SAT 99
[2023-04-16 13:46] VITALS: BP 124/78; PULSE 74; RESP 16; TEMP 36.9; O2SAT 99
--- NOTE | 2023-04-16 13:55 | ED.URI ---
HPI - URI/Sore Throat General Chief Complaint: Upper Respiratory Infection Stated Complaint: Blur Vision/Sinus Pressure Time Seen by Provider: 04/16/23 13:56 Source: patient, RN notes reviewed and old records reviewed Mode of arrival: ambulatory Limitations: no limitations History of Present Illness HPI Narrative: 27 year old female who presents to [facility] care with complaints of sinus congestion, pressure,drainage, and cough for the past 5 days. She has been taking Kareen-Biggs cold medication , nasal spray,Tylenol and Advil for her symptoms. Patient reports no shortness of breath reports history of asthma. Patient reports that she has had headaches and has felt feverish but has not monitored for any fevers. Patient denies any body aches, sore throat or any nausea,vomiting or diarrhea. MD elicited complaint: cough and sore throat Pertinent past history: pneumonia, asthma and other (al polypsnas) Onset (ago): day(s) (5) Consistency: constant Pain scale (0-10): 6 Able to tolerate fluids by mouth: Yes Treatments prior to arrival: acetaminophen, ibuprofen, cold medicine and other (nasal sray) Related Data Home Medications Medication Instructions Recorded Confirmed norethindrone 1 mg-ethinyl 1 tablet PO DAILY 09/03/22 02/11/23 estradiol 20 mcg (21)-iron 75 mg (7) tablet (Loestrin Fe 05/24 (28-Day)) Claritin 10 mg PO DAILY 10/30/22 02/11/23 clonazepam 0.5 mg tablet 0.5 mg PO HS PRN 02/11/23 02/11/23 linaclotide 72 mcg capsule 72 mcg PO DAILY PRN 02/11/23 02/11/23 (Linzess) trazodone 50 mg tablet 50 mg PO DAILY PRN 02/11/23 02/11/23 Allergies Allergy/AdvReac Type Severity Reaction Status Date / Time cefixime Allergy Unknown Hives Verified 04/16/23 13:45 amoxicillin [From Augmentin] AdvReac Other Verified 04/16/23 13:45 clavulanic acid AdvReac Dyspnea / Verified 04/16/23 13:45 [From Augmentin] SOB Review of Systems Review of Systems: CONSTITUTIONAL:Reports malaise, chills, sweats, no known fevers EYES: Denies visual changes, redness, or discharge. ENT: Reports rhinorrhea, congestion, sinus pain, no otalgia and no sore throat. CARDIOVASCULAR: Denies chest pain, palpitations, or edema. RESPIRATORY: Reports cough.? Denies dyspnea. GASTROINTESTINAL: Denies abdominal pain, nausea, vomiting, diarrhea SKIN: Denies rash or itching. MUSCULOSKELETAL: Denies myalgia. NEUROLOGIC: reports headache. All systems reviewed & are unremarkable except as noted in HPI and below PMFSH Past Medical History Medical History Anxiety Closed left forearm fracture Depression Dysuria GERD (gastroesophageal reflux disease) Globus syndrome Hypothyroidism Impacted cerumen of both ears Marijuana smoker Moderate persistent asthma Nasal folliculitis Nausea Nausea and vomiting Viral syndrome Surgical History Surgical History History of dental surgery History of tonsillectomy History of tympanoplasty of right ear Family History Family History Other Cerebrovascular accident Depression Diabetes mellitus Hypertension Kidney stones Social History Social History Smoking status: Never smoker Second hand tobacco smoke exposure: No Alcohol intake: current Drinks per week: 3 Substance use: former Substance use type: marijuana Lack of Transportation: No Lack of Food: Never True Current Housing: I Have Housing Concerned About Future Housing: No Difficulty Paying Gas/Electric Bills: No Difficulty Paying for Meds: No Currently Unemployed: No Education: High School Diploma/GED Difficulty w/ Childcare or Family Care: No Living arrangements: with family Occupation/Education: occupation Gender identity (if verbalized by the patient): Female Sexual Orienta
== END 2023-04-16 14:18 | disposition home or self-care (01) ==
PROVIDERS: Emergency Provider Registered Nurse; PCP Family Medicine
DX: J32.9 Chronic sinusitis, unspecified (principal); K21.9 Gastro-esophageal reflux disease without esophagitis; E03.9 Hypothyroidism, unspecified; J45.909 Unspecified asthma, uncomplicated; F41.9 Anxiety disorder, unspecified; F32.A Depression, unspecified
CPT/HCPCS: 99213; G0463

== ENCOUNTER 2023-08-25 11:54 | Outpatient (CLI) | payer BC, SELFPAY ==
[2023-08-25 13:23] LABS: Anion Gap 7 mmol/L (4-12); Blood Urea Nitrogen 11 mg/dL (7-17); Calcium 9.7 mg/dL (8.4-10.2); Carbon Dioxide 27 mmol/L (22-30); Chloride 105 mmol/L (98-107); Estimated Glomerular Filt Rate > 60; Glucose 93 mg/dL (65-110); Potassium 4.4 mmol/L (3.4-5.0); Sodium 139 mmol/L (137-145)
[2023-08-25 13:51] LABS: Thyroid Stimulating Hormone 0.554 uIU/mL (0.465-4.680)
[2023-08-25 14:38] LABS: Free T4 Free Thyroxine 2.03 ng/mL (0.78-2.19)
== END 2023-08-25 11:55 | disposition home or self-care (01) ==
LOC: ANHWCLAB 11:56
PROVIDERS: PCP Family Medicine; Visit Provider Internal Medicine Endocrinology, Diabetes & Metabolism
DX: E03.9 Hypothyroidism, unspecified (principal)
CPT/HCPCS: 36415; 80048; 84439; 84443